=== PATIENT | male | born 1995 | race Caucasian/White ===

== ENCOUNTER → 2019-11-29 06:57 | Outpatient (CLI) | payer BC, OTHER, SELFPAY ==
--- NOTE | 2019-11-29 | DI.MRI.S_ITS ---
PROCEDURE: MR LUMBAR SPINE WO CON INDICATIONS: Radiculopathy, lumbar region TECHNIQUE: Noncontrast sagittal T1 spin echo and T2 fast echo, sagittal STIR, axial T1 and T2 fast spin echo through the lumbar spine. In cases with scoliosis, additional coronal T2 fast spin echo may be performed. COMPARISON: None. FINDINGS: Image quality: Excellent. Alignment and Curvature: There is minimal retrolisthesis at L4-L5. Bone Marrow: Marrow is of normal overall signal. No acute vertebral body compression fractures. Spinal Cord: Conus medullaris terminates at the L1-L2 level. Visualized cord demonstrates normal signal and size. Paraspinous Soft Tissues: No paravertebral masses. L1-L2: Normal appearance. L2-L3: Normal appearance. L3-L4: Normal appearance. L4-L5: There is disc desiccation with mild loss of disc height and a small posterior annular fissure. There is a mild broad-based disc bulge eccentric to the right. Mild facet arthropathy is demonstrated. There is mild overall spinal canal narrowing with asymmetric narrowing of the right lateral recess. There is suggestion of mild mass effect on the descending right L5 nerve root. There is minimal right neuroforaminal narrowing. L5-S1: Mild disc desiccation and minimal loss of disc height posteriorly. There is a minimal disc bulge. No spinal canal or neural foraminal narrowing. IMPRESSION: 1. Mild degenerative disc disease at L4-L5 with a small disc bulge eccentric to the right. Associated mild spinal canal narrowing demonstrated with asymmetric narrowing at the right lateral recess and suggestion of mass effect on the descending right L5 nerve root. Dictated by: Apollo Blackman M.D. on 11/29/2019 at 8:16 Approved by: Apollo Blackman M.D. on 11/29/2019 at 8:27
== END ==
PROVIDERS: PCP Physician Assistant Medical; Referring Provider Chiropractor; Visit Provider Chiropractor
DX: M51.16 Intervertebral disc disorders with radiculopathy, lumbar region (principal); M48.061 Spinal stenosis, lumbar region without neurogenic claudication
CPT/HCPCS: 72148

== ENCOUNTER → 2019-12-18 14:45 | Outpatient (CLI) | payer BC, SELFPAY ==
--- NOTE | 2019-12-18 14:48 | DI.RAD.S_ITS ---
PROCEDURE: XR LUMBAR SPINE MIN 4V INDICATIONS: progressive Low back pain TECHNIQUE: Five views of the lumbar spine were acquired. COMPARISON: None. FINDINGS: Bones: Five nonrib-bearing vertebrae are present. There is normal bony alignment. No vertebral body compression fractures. No suspicious bony lesions. Soft tissues: Overlying bowel gas pattern is normal. No suspicious soft tissue calcifications. Oblique images: No pars defects. IMPRESSION: Normal lumbar spine. Dictated by: Shira Owen M.D. on 12/18/2019 at 14:45 Approved by: Shira Owen M.D. on 12/18/2019 at 14:46
== END ==
PROVIDERS: PCP Physician Assistant Medical; Referring Provider Physical Medicine & Rehabilitation; Visit Provider Physical Medicine & Rehabilitation
DX: M54.16 Radiculopathy, lumbar region (principal)
CPT/HCPCS: 72110

== ENCOUNTER → 2020-01-15 09:50 | Outpatient (CLI) | payer BC, OTHER, SELFPAY ==
[2020-01-17 06:14] LABS: COVID19 Sendout Not Detected (Not Detect)
== END ==
PROVIDERS: PCP Physician Assistant Medical; Visit Provider Physician Assistant
DX: Z11.59 Encounter for screening for other viral diseases (principal)
CPT/HCPCS: 87635

== ENCOUNTER 2020-01-18 09:49 | Outpatient (CLI) | payer BC, OTHER, MEDICAID, SELFPAY ==
[2020-01-18] VITALS (7 sets, daily range): BP systolic 106–147; BP diastolic 61–71; PULSE 47–72; RESP 12–16; TEMP 36.4; O2SAT 96–100
--- NOTE | 2020-01-18 09:50 | DI.RAD.S_ITS ---
PROCEDURE: PAIN L/S TRANSFORAMINAL INJECT INDICATIONS: SPONDYLOSIS COMPARISON: None. FINDINGS: Fluoroscopic spot filming was performed to verify placement of spinal needles at the right L4-L5 level(s), as labeled on the films. Appropriate location(s) of the needle tip(s) was confirmed by injection of iodinated contrast. IMPRESSION: Successful needle tip localization for right L4-L5 transforaminal epidural steroid injection. Dictated by: Joselito Benoit M.D. on 01/18/2020 at 12:05 Approved by: Joselito Benoit M.D. on 01/18/2020 at 12:06
[2020-01-18] MEDS: MIDAZOLAM 5 MG/5 ML VIAL IV (11:24)
[2020-01-18] MEDS: fentaNYL 100 MCG/2 ML INJ 50 MCG IV (11:24)
[2020-01-18] MEDS: BUPIVACAINE 0.25% (PF) VIAL 2 ML INJ (11:32)
[2020-01-18] MEDS: IOPAMIDOL 15 ML VIAL 3 ML INJ (11:32)
[2020-01-18] MEDS: BETAMETHASONE 30 MG/5 ML MDV 6 MG INJ (11:32)
[2020-01-18] MEDS: DEXAMETHASONE 10 MG/ML VIAL 20 MG INJ (11:33)
--- NOTE | 2020-01-18 12:00 | P.PCN_ITS ---
Date/Time/Diagnoses Date of procedure: 01/18/20 Time of procedure: 12:00 Pre-procedure diagnosis: 1. FORAMINAL STENOSIS WITH LE SYMPTOMS Post-procedure diagnosis: same Procedure Notes Procedure: 1. FLUOROSCOPICALLY GUIDED CONTRAST CONTROLLED TRANSFORAMINAL EPIDURAL STEROID INJECTION - RIGHT L4/5 TFESI Indications: Xavi is referred by Dr. Ribera for treatment of Foraminal Stenosis with Right LE Symptoms Physician: Aba Severino Total Fluoroscopy time (seconds): 11 Total sedation minutes: 13 Complications: none Procedure in detail & Post-procedure care: FINDINGS Foraminal Nerve Root Compression secondary to disc disease and facet hypertrophy DESCRIPTION OF PROCEDURE Following review of allergy and review of potential side effects and complications, including, but not necessarily limited to, infection, allergic reaction, local tissue breakdown, stroke, temporary or permanent nerve injury, paralysis, and possible , the patient indicated that the patient understood and agreed to proceed. An informed consent document was signed by the patient, witnessed by a nurse, and placed in the patient's chart. Additionally, other treatment options including medications, modalities, and physical therapy were reviewed with the patient. After review of previous anaesthesic history and IV conscious sedation the patient was deemed safe to proceed with today?s procedure with IV conscious sedation as ASA class II designation. Safety time-out was performed to confirm patient ID, procedure to be performed and site of procedure. IV sedation was accomplished with a combination of 3mg of Versed and 50mcg of Fentanyl was administered by the RN after DO order, titrated to patient comfort during the course of the procedure while the patient remained responsive to all verbal commands In the prone position following sterile prep and drape of the lumbar region, the Right L4/5 posterior neuroforamen was identified fluoroscopically. The skin was anesthetized via a 25-gauge 1.5-inch needle with 1% lidocaine solution. At this point, a 25-gauge 3.5-inch spinal needle was atraumatically introduced and advanced under fluoroscopic guidance through the posterior Right L4/5 neuroforamen to approximately the anterior aspect of the canal. Depth was confirmed on lateral view. Following negative aspiration, injection of approximately 1.5cc of Isovue 200 under live fluoroscopy in the AP view confirmed excellent flow along the nerve root, into the epidural space without vascular or intrathecal uptake observed Radiological data, including multiple fluoroscopic views of the lumbosacral spine, reveal a spinal needle at the right L4/5 posterior neuroforamen. Subsequent views show flow of contrast material flowing superiorly and inferiorly along the nerve root confirming epidural flow. Subsequently, a test dose of 1.5 cc of 1% lidocaine solution was administered and patient was observed for two minutes for signs or symptoms of complications, including abdominal pain, shortness of breath, bilateral upper or lower extremity weakness, nausea and vomiting, prior to steroid injection. At this point, a total of 3cc or 20mg of dexamethasone and 6mg of betamethasone was injected without incident. The procedure tolerated the procedure well without signs or symptoms of complications prior to transfer to the recovery area continued monitoring without incident. The patient was then transferred to the recovery area where they were observed for an appropriate time after the injection. The patient reported a VAS score of 7 prior to the procedure and a post- procedure VAS of 0. POST OP INSTRUCTIONS The patient was provided a Pain Log to continue to record their response to the target-specific procedure prior to follow-up visit with their referring physician. Additionally, specific post-injection care instructions and a contact number to our office were provided if concerns arise regarding possible complications associated with the procedure are suspected.
== END 2020-01-18 12:10 | disposition home or self-care (01) ==
LOC: RAD 09:50
PROVIDERS: PCP Physician Assistant Medical; Referring Provider Physician Assistant Medical; Visit Provider Physical Medicine & Rehabilitation
DX: M48.061 Spinal stenosis, lumbar region without neurogenic claudication (principal); M51.16 Intervertebral disc disorders with radiculopathy, lumbar region
CPT/HCPCS: 64483; 99152; J0702; J1100; J2250; J3010

== ENCOUNTER → 2020-05-28 10:04 | Outpatient (CLI) | payer BC, OTHER, SELFPAY ==
[2020-05-28 11:04] LABS: COVID19 -Nasal RAPID Negative (Negative)
== END ==
PROVIDERS: PCP Physician Assistant Medical; Visit Provider Physical Medicine & Rehabilitation
DX: Z01.812 Encounter for preprocedural laboratory examination (principal); Z20.822 Contact with and (suspected) exposure to COVID-19
CPT/HCPCS: 87635; C9803

== ENCOUNTER 2020-05-30 10:11 | Outpatient (CLI) | payer BC, OTHER, SELFPAY ==
[2020-05-30] VITALS (8 sets, daily range): BP systolic 112–134; BP diastolic 56–83; PULSE 50–80; RESP 13–20; TEMP 36.8; O2SAT 95–97
--- NOTE | 2020-05-30 10:13 | DI.RAD.S_ITS ---
PROCEDURE: PAIN L/SI FACET INJ/BLK 1STL INDICATIONS: SPONDYLOSIS COMPARISON: [facility], , PAIN L/S TRANSFORAMINAL INJECT, 01/18/2020, 11:28. FINDINGS: Fluoroscopic spot filming was performed to verify placement of spinal needles on the right at the L4-L5 and L5-S1 levels, as labeled on the films. Appropriate location(s) of the needle tip(s) was confirmed by injection of iodinated contrast. IMPRESSION: Intraprocedural examination within normal limits. Dictated by: Kolton Zhou M.D. on 05/30/2020 at 11:59 Approved by: Kolton Zhou M.D. on 05/30/2020 at 12:00
[2020-05-30] MEDS: fentaNYL 100 MCG/2 ML INJ 50 MCG IV (11:41)
[2020-05-30] MEDS: MIDAZOLAM 5 MG/5 ML VIAL IV (11:41)
[2020-05-30] MEDS: IOPAMIDOL 15 ML VIAL 3 ML INJ (11:46)
[2020-05-30] MEDS: BETAMETHASONE 30 MG/5 ML MDV 12 MG INJ (11:47)
[2020-05-30] MEDS: BUPIVACAINE 0.5% (PF) VIAL 2 ML INJ (11:47)
--- NOTE | 2020-05-30 12:01 | P.PCN_ITS ---
Date/Time/Diagnoses Date of procedure: 05/30/20 Time of procedure: 12:02 Pre-procedure diagnosis: 1. FACET ARTHROPATHY, 2. AXIAL LBP, 3. MULTILEVEL DDD Post-procedure diagnosis: same Procedure Notes Procedure: 1. FLUOROSCOPICALLY GUIDED CONTRAST CONTROLLED FACET JOINT INJECTIONS RIGHT L4/5, L5/S1 Indications: Xavi is referred by DAVINA Ribera for treatment of Axial LBP Physician: Aba Severino Total Fluoroscopy time (seconds): 6 Total sedation minutes: 10 Complications: none Procedure in detail & Post-procedure care: FINDINGS Multilevel Facet Arthropathy with Clinically significant axial LBP DESCRIPTION OF PROCEDURE Fluoroscopically guided, contrast-controlled right L4/5, L5/S1 facet joint injections. Following review of allergy and review of potential side effects and complications, including, but not necessarily limited to, infection, allergic reaction, local tissue breakdown, stroke, temporary or permanent nerve injury, paralysis, and possible , the patient indicated that the patient understood and agreed to proceed. An informed consent document was signed by the patient, witnessed by a nurse, and placed in the patient's chart. Additionally, other treatment options including medications, modalities, and physical therapy were reviewed with the patient. After review of previous anaesthesic history and IV conscious sedation the patient was deemed safe to proceed with today?s procedure with IV conscious sedation as ASA class II designation. Safety time-out was performed to confirm patient ID, procedure to be performed and site of procedure. IV sedation was accomplished with a combination of 2mg of Versed and 50mcg of Fentanyl was administered by the RN after DO order, titrated to patient comfort during the course of the procedure while the patient remained responsive to all verbal commands. In the prone position, following sterile prep and drape of the lumbar region, the posterior aspect of the right L4/5, L5/S1 facet joints were identified fluoroscopically. The skin was anesthetized via a 25-gauge 1.5-inch needle with 1% lidocaine solution into the corresponding facet joints. At this point, a 22- gauge 3.5-inch spinal needle was atraumatically introduced and advanced under fluoroscopic guidance into the corresponding facet joints. Following negative aspiration, injections of approximately 0.2-cc of Isovue 200 confirmed interarticular placement without vascular uptake. Radiological data, including multiple fluoroscopic views of the lumbosacral spine, reveal a spinal needle at the right L4/5, L5/S1 facet joints. Subsequent views show flow of contrast material both superiorly and inferiorly within the joint space without vascular or intrathecal uptake. At this point, a total of 0.5cc including a mixture of 0.25cc Marcaine and 0.25cc betamethasone was injected without complication into each of the corresponding facet joints. The procedure tolerated the procedure well without signs or symptoms of compl ications prior to transfer to the recovery area continued monitoring without incident. The patient was then transferred to the recovery area where they were observed for an appropriate period of time after the injection. The patient reported a VAS score of 7 prior to the procedure and a post-procedure VAS of 0. POST OP INSTRUCTIONS The patient was provided a Pain Log to continue to record their response to the target-specific procedure prior to follow-up visit with their referring physician. Additionally, specific post-injection care instructions and a contact number to our office were provided if concerns arise regarding possible complications associated with the procedure are suspected.
== END 2020-05-30 12:15 | disposition home or self-care (01) ==
PROVIDERS: PCP Physician Assistant Medical; Referring Provider Physical Medicine & Rehabilitation; Visit Provider Physical Medicine & Rehabilitation
DX: M47.816 Spondylosis without myelopathy or radiculopathy, lumbar region (principal); M47.817 Spondylosis without myelopathy or radiculopathy, lumbosacral region; M54.5 Low back pain; M51.36 Other intervertebral disc degeneration, lumbar region; M51.37 Other intervertebral disc degeneration, lumbosacral region
CPT/HCPCS: 64493; 64494; 99152; J0702; J2250; J3010